=== PATIENT | female | born 1955 | race Caucasian/White ===

== ENCOUNTER 2016-10-05 13:03 | Emergency (ER) | payer BC ==
[~2016-10-05] VITALS: Ht 157.5 cm; Wt 66.5 kg
[2016-10-05] MEDS ORDERED: PARO10TA24 PO (14:00)
[2016-10-05] MEDS ORDERED: ASPIRIN 81 MG TABLET CHEW PO ONE (14:30)
[2016-10-05] MEDS ORDERED: LORazepam 1MG TABLET ONE (14:30)
[2016-10-05] MEDS ORDERED: LORazepam 1MG TABLET PO ONE (14:30)
[2016-10-05] MEDS ORDERED: ASPIRIN 81 MG TABLET CHEW ONE (14:31)
[2016-10-05 14:36] VITALS: BP 139/84
[2016-10-05 15:03] LABS: BLOOD UREA NITROGEN 15 mg/dL (7-18)
[2016-10-05 15:08] LABS: IS PT STATUS REG ER OR PRE ER? YES
[2016-10-05] MEDS ORDERED: POTASSIUM CHLORIDE 20 MEQ TAB.ER.PRT ONE (15:28)
[2016-10-05] MEDS ORDERED: POTASSIUM CHLORIDE 20 MEQ TAB.ER.PRT PO ONE (15:30)
== END 2016-10-05 15:33 | disposition home or self-care (01) ==
LOC: ED 14:20
DX: R07.2 Precordial pain (principal); E87.6 Hypokalemia
CPT/HCPCS: 36415; 71020; 80048; 82040; 83880; 84484; 85025; 93005

== ENCOUNTER 2019-08-18 10:12 | Emergency (ER) | payer BC ==
[~2019-08-18] VITALS: Ht 157.5 cm; Wt 59.9 kg
[~2019-08-18 10:12] MED LIST: PARO10TA56 PO
[2019-08-18 12:00] LABS: BASOPHILS # (AUTO) 0.02 x10^3/uL (0-0.1); BASOPHILS % (AUTO) 0 % (0-1); EOSINOPHILS # (AUTO) 0.06 x10^3/uL (0-0.4); EOSINOPHILS % (AUTO) 1 % (1-7); LYMPHOCYTES # (AUTO) 1.57 x10^3/uL (1-3.4); LYMPHOCYTES % (AUTO) 22 % (22-44); MD NO; MEAN CORPUSCULAR HEMOGLOBIN 33.5 pg (27.0-34.8); MEAN CORPUSCULAR HGB CONC 33.7 g/dL (32.4-35.8); MEAN CORPUSCULAR VOLUME 99.4 fL (80-100); MEAN PLATELET VOLUME 8.7 fL (7.4-10.4); MONOCYTES # (AUTO) 0.49 x10^3/uL (0.2-0.8); MONOCYTES % (AUTO) 7 % (2-9); NEUTROPHILS # (AUTO) 4.88 x10^3/uL (1.8-6.8); NEUTROPHILS % (AUTO) 70 % (42-75); PLATELET COUNT 186 x10^3/uL (130-400); RED BLOOD COUNT 4.72 x10^6/uL (3.82-5.3); RED CELL DISTRIBUTION WIDTH 13.1 % (9.6-15.2)
[2019-08-18 12:07] LABS: ALBUMIN 3.5 g/dL (3.4-5.0); ANION GAP 4 mmol/L (5-15); CALCIUM 8.9 mg/dL (8.5-10.1); CHLORIDE 107 mmol/L (98-107)
[2019-08-18 12:12] LABS: CREATININE 0.98 mg/dL (0.55-1.02); TROPONIN I < 0.015 ng/mL (0.000-0.045)
[2019-08-18 13:27] VITALS: BP 119/82
[2019-08-18] MEDS ORDERED: LAMO100T8 PO (17:25)
[2019-08-18] MEDS ORDERED: ESTRADIOL (17:25)
[2019-08-18] MEDS ORDERED: PROGESTERONE (17:25)
[2019-08-18] MEDS ORDERED: LAMO200T49 PO (17:25)
[2019-08-18] MEDS ORDERED: LORA10TA62 PO (22:11)
[2019-08-18] MEDS ORDERED: MELA10CA PO (22:18)
[2019-08-19] MEDS ORDERED: [UNRECOGNIZED DRUG - CODE] PO (13:13)
[2019-08-19] MEDS ORDERED: MULT-252 PO (13:13)
[2019-08-19] MEDS ORDERED: MEDR2.5T30 PO (13:13)
[2019-08-19] MEDS ORDERED: ESTR1TAB15 PO (13:13)
[2019-08-19] MEDS ORDERED: FLAX10004 PO (13:13)
[2019-08-19] MEDS ORDERED: MAGN100T6 PO (13:13)
[2019-08-19] MEDS ORDERED: LACT1TAB13 PO (13:13)
== END 2019-08-18 13:47 | disposition home or self-care (01) ==
LOC: ED 11:27
DX: R55 Syncope and collapse (principal); R42 Dizziness and giddiness
CPT/HCPCS: 36415; 71045; 80048; 82040; 83880; 84484; 85025; 93005; 99285